=== PATIENT | male | born 1990 | race African-American/Black ===

== ENCOUNTER 2017-12-06 07:49 | Day surgery (SDC) | payer OTHER ==
[~2017-12-06 07:49] MED LIST: BUPIVACAINE HCL 0.5 % INJ/PF 30 ML SDV ONE; CEFAZOLIN 2 GM/D5W RTU 2 GM/50 ML RTUPB IV SCH; LIDOCAINE 1% INJ-PF (10 MG/ML) 30 ML SDV ONE
[2017-12-06] MEDS ORDERED: FENTANYL CITRATE INJ/PF 100 MCG/2 ML AMPUL ONE ×2 (08:22→12:59)
[2017-12-06] MEDS ORDERED: ONDANSETRON HCL INJ/PF 4 MG/2 ML SDV ONE (08:22)
[2017-12-06] MEDS ORDERED: KETOROLAC TROMETHAMINE 60 MG/2 ML SDV ONE (08:22)
[2017-12-06] MEDS ORDERED: ACETAMINOPHEN 1,000 MG/100 ML RTUPB IV ONE (08:22)
[2017-12-06] MEDS ORDERED: MIDAZOLAM 2 MG/2 ML INJ ONE (08:22)
[2017-12-06] MEDS ORDERED: PROPOFOL INJ 200 MG/20 ML VIAL IV ONE (08:22)
[2017-12-06] MEDS ORDERED: DEXAMETHASONE SOD PHOSPHATE INJ 4 MG/1 ML VIAL ONE (08:22)
[2017-12-06 08:41] LABS: HEMATOCRIT 38.6 % (37.9-51.0); HEMOGLOBIN 12.7 g/dL (13.5-17.0); MEAN CORPUSCULAR HEMOGLOBIN 26.8 pg (27.0-33.4); MEAN CORPUSCULAR VOLUME 81 fl (80-97); PLATELET COUNT 308 10^3/uL (150-450); RED BLOOD COUNT 4.75 10^6/uL (4.35-5.55); RED CELL DISTRIBUTION WIDTH 13.5 % (11.5-14.0); WHITE BLOOD COUNT 6.6 10^3/uL (4.0-10.5)
[2017-12-06 08:55] LABS: APPEARANCE,URINE CLEAR; BILIRUBIN,URINE NEGATIVE (NEGATIVE); COLOR,URINE YELLOW; GLUCOSE, URINE NEGATIVE (NEGATIVE); KETONES,URINE NEGATIVE (NEGATIVE); LEUKOCYTE ESTERASE,URINE NEGATIVE (NEGATIVE); NITRITE,URINE NEGATIVE (NEGATIVE); PROTEIN,URINE NEGATIVE (NEGATIVE); URINE SPECIFIC GRAVITY 1.012; UROBILINOGEN,URINE NEGATIVE mg/dL (<2.0)
[2017-12-06 09:03] LABS: ANION GAP 13 (5-19); BLOOD UREA NITROGEN 12 mg/dL (7-20); CALCIUM 9.7 mg/dL (8.4-10.2); CARBON DIOXIDE 24 mmol/L (22-30); CHLORIDE 106 mmol/L (98-107); GLUCOSE 97 mg/dL (75-110); POTASSIUM 4.5 mmol/L (3.6-5.0); SODIUM 142.8 mmol/L (137-145)
[2017-12-06] MEDS ORDERED: PROMETHAZINE HCL INJ 25 MG/1 ML VIAL IV PRN ×2 (10:46)
[2017-12-06] MEDS ORDERED: FENTANYL CITRATE INJ/PF 100 MCG/2 ML AMPUL IV PRN ×3 (10:46)
[2017-12-06] MEDS ORDERED: MORPHINE SULFATE 10 MG/ML INJ IV PRN ×2 (10:46→12:54)
[2017-12-06] MEDS ORDERED: DIPHENHYDRAMINE HCL 50 MG/ML VIAL IV PRN (10:46)
[2017-12-06] MEDS ORDERED: MEPERIDINE HCL/PF INJ 25 MG/1 ML DISP.SYRIN IV PRN (10:46)
[2017-12-06] MEDS ORDERED: OXYCODONE-ACETAMINOPHEN 5-325 MG TABLET PO PRN (12:54)
--- NOTE | 2017-12-06 12:57 | Discharge Summary ---
Discharge Summary (SDC) - Discharge Final Diagnosis: Right ring finger proximal interphalangeal joint fracture dislocation Date of Surgery: 12/06/17 Discharge Date: 12/06/17 Condition: Good Treatment or Instructions: Schedule Follow Up w/ Dr. Rolando Flower @ [facility] to be seen in 10-14 days or as scheduled [place]: [place]: [place]: Ice and elevate Keep splint clean/dry/intact. If your fingers become numb please unwrap the Daniel wrap but leave the splint in place, if the sensation does not return within 30 minutes please return to the emergency department. May begin finger range of motion attempting to make full fist. Please use ibuprofen (Motrin or Advil) 600-800 mg every 8 hours as needed for pain or fever DO NOT TAKE w/ TORADOL may use once TORADOL complete. You may also use acetaminophen (Tylenol) 1000 mg every 4-6 hours as needed for pain or fever. Please be aware that many medications contain acetaminophen, do not exceed a total of 1000 mg of acetaminophen every 6 hours. If ibuprofen and acetaminophen are not sufficient for your pain you may take the Percocet/[place]. Please be aware that the Percocet/[place] does contain Tylenol. Stool softener of choice when on pain medication. Prescriptions: Ketorolac Tromethamine [Toradol 10 mg Tablet] 10 mg PO Q8HP PRN #10 tablet PRN Reason: Oxycodone HCl/Acetaminophen [Percocet 5-325 mg Tablet] 1 tab PO Q6 #30 tab Referrals: DAISHA GILLIS MD [Primary Care Provider] - Discharge Diet: As Tolerated Respiratory Treatments at Home: Deep Breathing/Coughing Discharge Activity: No Lifting Over 10 Pounds, No Lifting/Push/Pulling Report the Following to Your Physician Immediately: Fever over 101 Degrees, Unusual Bleeding, Redness, Swelling, Warmth, Increased Soreness
--- NOTE | 2017-12-06 13:06 | Operative Report ---
Operative Report DATE OF SURGERY: 12/06/17 PREOPERATIVE DIAGNOSIS: Right ring finger PIP joint fracture dislocation POSTOPERATIVE DIAGNOSIS: Same OPERATION: Left ring PIP joint saba-hamate arthroplasty SURGEON: JHON NAVARRO ANESTHESIA: GA COMPLICATIONS: None ESTIMATED BLOOD LOSS: Minimal PROCEDURE: Indication for above procedure: 27-year-old male who sustained a fracture dislocation of his right ring finger. Patient has known history of PIP joint instability. He subsequently followed up at my office at which point persistent fracture dislocation was noted at that point we discussed treatment options risks and benefits of the surgical procedure have been explained including postoperative outcomes and prognosis. Patient verbalized understanding consented for the procedure. Procedure In Detail: Patient was seen and evaluated in the preoperative holding area. The RIGHT upper extremity was initialized and marked. Patient received 2g of Ancef IV for bacterial prophylaxis. Patient was taken back to the operative room where transferred to the operative table and placed under general anesthesia. Once they were adequately anesthetized a nonsterile tourniquet was placed on the upper extremity. A surgical team debriefing was performed ensuring all instrumentation was available, the surgical procedure was discussed with possible concerns reviewed. The upper extremity was prepped with chlorhexidine and alcohol and draped in a sterile fashion. A timeout was done identifying correct patient, procedure and extremity everyone in attendance agree with this and verbalized no concerns. The extremity was exsanguinated the tourniquet was inflated to 250 mmHg. Lateral incision was made with bring her extension along the middle phalanx and proximal phalanx. Blunt dissection was performed. The radial and ulnar neurovascular bundles were identified. The shira's ligaments were released to free up the neurovascular bundles to avoid traction injury. A flap between the A2 and A4 jessica was then elevated. The FDP and the ulnar slip of the FDS were retracted ulnarly. This exposed the volar plate the volar plate was released from the base of the proximal phalanx. The radial and ulnar collateral ligaments were elevated from their insertion along the proximal phalanx this allowed exposure of the PIP joint via the shotgun approach. Inspection demonstrated comminution of the volar lip fragment without recovery of the articular surface thus decision was made to proceed with saba-hamate arthroplasty. Transverse skin incision was made centered over the fourth/fifth CMC joint. Blunt dissection was performed. The ECU tendon and the EDC tendons were identified and retracted to expose the fourth/fifth CMC joint. Once exposed I measured the appropriate confines of my saba-hamate graft to be 1 cm x 7 mm x 5 mm. These were marked out. I then checked on C-arm fluoroscopy to confirm appropriate placement. The area was then predrilled with a 0.045 K wire which was then completed with a sagittal saw. A curved osteotome was then utilized to release the hamate graft. The area was then copiously irrigated with normal saline and defect was filled with a gel foam. The fourth/fifth CMC capsule was closed with interrupted 3-0 Vicryl suture. Skin was closed with interrupted 4- 0 nylon suture. The PIP joint was once again exposed and the hamate graft was inset. The graft was then contoured to fit the PIP joint.. During insetting of the graft volar tilt was placed to provide stability of the PIP joint. This was then secured into position with a 026 K wire. C-arm fluoroscopy was obtained confirming appropriate placement. An additional K wire was placed approximately for rotational stability. A 1.2 mm cortical screw was placed. Which was later switched out for a shorter screw due to possible irritation along the extensor mechanism. Fixation of the hamate graft was completed with an additional to 1.2 mm cortical screws. The joint was then reduced which demonstrated excellent stability of the PIP joint and full flexion and extension without evidence of subluxation. No evidence of crepitation with range of motion. C- arm fluoroscopy was obtained confirming appropriate placement of the graft. Wound was irrigated with normal saline. Tourniquet was deflated any peripheral bleeding was controlled with bipolar cautery until the wound was dry. The volar plate was secured to the collateral ligaments with interrupted 3-0 Vicryl suture. The jessica flap was then placed over the volar plate to protect the flexor tendons from irritation with interrupted 4-0 Monocryl. Skin incision was then closed with interrupted 4-0 nylon suture. 20 cc of 0.5% bupivacaine without epinephrine was injected for postoperative pain control. Patient was placed in a ulnar gutter splint with the wrist in 20 of extension MP joints in 90 of flexion and dorsal blocking of the PIP joints at neutral. Sponge counts, instrument counts, needle counts counts were correct. Patient was then awoken from anesthesia. Transferred from the operating room table to the operating room stretcher. There was no intraoperative complications patient tolerated procedure well stable to PACU. Postoperative plan: Patient will be started on occupational therapy begin range of motion as per protocol 2 weeks postoperatively. Will obtain x-rays at follow-up.
[2017-12-06] MEDS: FENTANYL CITRATE INJ/PF 100 MCG/2 ML AMPUL ONE ×2 (13:08→13:13)
[2017-12-06 15:10] VITALS: BP 153/94
[2017-12-06] MEDS ORDERED: DIPHENHYDRAMINE HCL 25 MG/10 ML UDC ONE (15:16)
--- NOTE | 2017-12-06 15:53 | RADIOLOGY REPORT (SQ) ---
EXAM DESCRIPTION: NO CHG FLUORO; FINGER RIGHT COMPLETED DATE/TIME: 12/06/2017 3:45 pm REASON FOR STUDY: ORIF RIGHT FINGER S63.284A DISLOCATION OF PROXIMAL INTERPHALN JOINT OF R RNG F COMPARISON: None. FLUOROSCOPY TIME: 29 seconds 4 images saved to PACS. TECHNIQUE: Intra-operative images acquired during surgical procedure to evaluate progress. NUMBER OF IMAGES: For LIMITATIONS: None. FINDINGS: Images reveal open reduction internal fixation of the fracture through the base of the mid dle phalanx ring finger. Please correlate with operative note. IMPRESSION: IMAGE(S) OBTAINED DURING PROCEDURE. COMMENT: Quality ID [id number]: Final reports for procedures using fluoroscopy that document radiation exp osure indices, or exposure time and number of fluorographic images (if radiation exposure indices are not available) Please consult full operative report of the attending physician for description of the procedure. TECHNICAL DOCUMENTATION: JOB ID: [id number] [employer]- All Rights Reserved Reading location - IP/workstation name: [email or web address]
--- NOTE | 2017-12-06 15:53 | RADIOLOGY REPORT (SQ) ---
EXAM DESCRIPTION: NO CHG FLUORO; FINGER RIGHT COMPLETED DATE/TIME: 12/06/2017 3:45 pm REASON FOR STUDY: ORIF RIGHT FINGER S63.284A DISLOCATION OF PROXIMAL INTERPHALN JOINT OF R RNG F COMPARISON: None. FLUOROSCOPY TIME: 29 seconds 4 images saved to PACS. TECHNIQUE: Intra-operative images acquired during surgical procedure to evaluate progress. NUMBER OF IMAGES: For LIMITATIONS: None. FINDINGS: Images reveal open reduction internal fixation of the fracture through the base of the mid dle phalanx ring finger. Please correlate with operative note. IMPRESSION: IMAGE(S) OBTAINED DURING PROCEDURE. COMMENT: Quality ID [id number]: Final reports for procedures using fluoroscopy that document radiation exp osure indices, or exposure time and number of fluorographic images (if radiation exposure indices are not available) Please consult full operative report of the attending physician for description of the procedure. TECHNICAL DOCUMENTATION: JOB ID: [id number] [employer]- All Rights Reserved Reading location - IP/workstation name: [email or web address]
== END 2017-12-06 15:25 | disposition home or self-care (01) ==
LOC: OROUT 07:49
PROVIDERS: ATTEND Orthopaedic Surgery
DX: S63.284A Dislocation of proximal interphalangeal joint of right ring finger, initial encounter (principal); X58.XXXA Exposure to other specified factors, initial encounter; Z01.810 Encounter for preprocedural cardiovascular examination; Z01.811 Encounter for preprocedural respiratory examination; Z01.812 Encounter for preprocedural laboratory examination
CPT/HCPCS: 36415; 85027; 80048; 81001; 73140; 26536; C1713 ×4; J2250; J3490 ×2; J1100; J1885; J3010; J2405; J2704; J0690; J0131; 01830